=== PATIENT | female | born 1990 | race Caucasian/White ===

== ENCOUNTER 2022-08-22 15:53 | Emergency (ER) | payer MEDICAID, OTHER ==
[~2022-08-22] VITALS: Ht 162.6 cm; Wt 61.2 kg
--- NOTE | 2022-08-22 16:33 | NUR ---
Dr Ibarra at the bedside for MSE.
[2022-08-22] MEDS ORDERED: HYDROCODONE/APAP 10-325 MG TABLET ONE (16:41)
[2022-08-22] MEDS ORDERED: HYDROCODONE/APAP 10-325 MG TABLET PO ONE (16:45)
--- NOTE | 2022-08-22 17:08 | NUR ---
Pt stated she has to leave and eloped from the ER.
== END 2022-08-22 17:19 | disposition left against medical advice (07) ==
LOC: ER 15:53
DX: Z04.1 Encounter for examination and observation following transport accident (principal); V43.52XA Car driver injured in collision with other type car in traffic accident, initial encounter; Y92.411 Interstate highway as the place of occurrence of the external cause
CPT/HCPCS: A4663

== ENCOUNTER 2025-02-13 02:20 | Emergency (ER) | payer SELFPAY ==
[~2025-02-13] VITALS: Ht 162.6 cm; Wt 65.8 kg
[~2025-02-13 02:20] MED LIST: HYDR-3976 PO
[2025-02-13 02:22] VITALS: BP 142/100
[2025-02-13] MEDS ORDERED: OXYCODONE/APAP 5-325 MG TABLET ONE (02:43)
[2025-02-13] MEDS ORDERED: ONDANSETRON ODT 4 MG TAB.RAPDIS ONE (02:43)
[2025-02-13] MEDS: OXYCODONE/APAP 5-325 MG TABLET PO ONE (02:48)
[2025-02-13] MEDS: ONDANSETRON ODT 4 MG TAB.RAPDIS SL ONE (02:48)
[2025-02-13] MEDS ORDERED: ONDA4TAB11 PO (03:56)
[2025-02-13] MEDS ORDERED: OXYC-128 PO (03:56)
[2025-02-13 04:21] VITALS: BP 142/100; O2SAT 97
[2025-02-13] MEDS ORDERED: TRAM50TA2 PO (13:51)
== END 2025-02-13 04:29 | disposition home or self-care (01) ==
LOC: ER 02:25
DX: S70.11XA Contusion of right thigh, initial encounter (principal); X58.XXXA Exposure to other specified factors, initial encounter; Y93.89 Activity, other specified; Y92.89 Other specified places as the place of occurrence of the external cause; Y99.8 Other external cause status
CPT/HCPCS: 73551; 73590; A4606; A4663; Q0162